=== PATIENT | male | born 1985 | race Caucasian/White ===

== ENCOUNTER 2023-01-18 04:11 | Emergency (ER) | payer OTHER, SELFPAY ==
--- NOTE | ~2023-01-18 | CT_ITS ---
EXAMINATION: CT ABDOMEN AND PELVIS WITH CONTRAST CLINICAL INFORMATION: Lower abdominal pain. Rule out appendicitis or diverticulitis. COMPARISON: None available. TECHNIQUE: Multidetector volumetric images were obtained from the superior aspect of the liver through the pubic symphysis following administration 85 mL of Omnipaque 350 intravenous contrast. Sagittal and coronal reformatted images were obtained on the technologist's workstation. Oral contrast: No This CT examination was performed using dose optimization techniques as appropriate, variously including the following: *Automated exposure control *Adjustment of mA and/or kV according to patient size (this includes techniques or standardized protocols for targeted exams where dose is matched to indication/reason for exam; i.e. extremities or head) *Use of iterative reconstruction technique DLP: 544 mGy-cm FINDINGS: LUNG BASES: The visualized lung bases are unremarkable. LIVER, GALLBLADDER, AND BILIARY TREE: Liver is normal in size. Subtle nodularity of the hepatic surface contour raises the possibility of early cirrhosis. No focal liver lesions. No biliary dilatation. Gallbladder physiologically contracted without inflammation. PANCREAS: Unremarkable. SPLEEN: Unremarkable. ADRENAL GLANDS: Unremarkable. KIDNEYS AND URETERS: The kidneys are normal in size, shape, and attenuation. No hydronephrosis, hydroureter, or calculi seen. No perinephric stranding. BLADDER: Unremarkable. GASTROINTESTINAL TRACT: Sigmoid colonic diverticulosis. No evidence of diverticulitis. Normal appendix. Stomach and small bowel unremarkable. ABDOMINAL WALL: No significant hernia is appreciated. LYMPH NODES: Prominent gastrohepatic ligament lymph nodes measure approximately 1 cm short axis. VASCULAR: Unremarkable. PELVIC VISCERA: Unremarkable. OSSEOUS STRUCTURES: Unremarkable. CT/CT abdomen pelvis w IV con IMPRESSION: * No acute findings within the abdomen or pelvis to explain the patient's symptomatology. * Sigmoid colonic diverticulosis without evidence of diverticulitis. * Normal appendix. * Subtle nodularity of the hepatic surface contour raises the possibility of early cirrhosis.
--- NOTE | ~2023-01-18 | XR_ITS ---
EXAMINATION: XR CHEST CLINICAL INFORMATION: Chest pain. Rule out pneumonia. COMPARISON: None available. TECHNIQUE: 2 views of the chest were obtained. FINDINGS: No significant abnormality is noted involving the heart, lungs, mediastinum, bony thorax or soft tissues. XR/XR chest 2V IMPRESSION: Unremarkable examination.
[2023-01-18 04:18] VITALS: BP 117/80; BP 137/85; PULSE 75; PULSE 80; RESP 22; TEMP 36.4; O2SAT 98; BMI 29.6
--- NOTE | 2023-01-18 04:20 | ECG_ITS ---
Test Reason : CHEST PAIN Blood Pressure : / mmHG Vent. Rate : 072 BPM Atrial Rate : 072 BPM P-R Int : 120 ms QRS Dur : 088 ms QT Int : 402 ms P-R-T Axes : 024 -09 005 degrees QTc Int : 440 ms Normal sinus rhythm Cannot rule out Inferior infarct , age undetermined Abnormal ECG No previous ECGs available Referred By: Generic ED Physician Electronically Signed By:JOVANNI MONGE MD
[2023-01-18 04:27] VITALS: BP 137/75; PULSE 81; PULSE 82; RESP 28; RESP 31; TEMP 36.4; O2SAT 100
[2023-01-18 04:34] LABS: Basophils Absolute Auto 0.1 X10*3/uL (0.0-0.2); Eosinophils Absolute Auto 0.3 X10*3/uL (0.0-0.4); Eosinophils Percent Auto 2.8 % (0-4); Hematocrit 41.6 % (42.0-52.0); Hemoglobin 14.4 g/dl (14.0-18.0); Imm Gran Abs Auto 0.02 X10*3/uL (0.00-0.03); Imm Gran Pct Auto 0.2 % (0.0-0.4); Lymphocytes Percent Auto 39.5 % (20-40); MANUAL DIFF FLAG NO; Mean Corpuscular HGB Conc 34.6 g/dl (31.0-36.0); Mean Corpuscular Hemoglobin 29.7 pg (27.0-33.0); Mean Corpuscular Volume 85.8 fL (80.0-98.0); Mean Platelet Volume 9.8 fL (9.4-12.4); Monocytes Absolute Auto 0.7 X10*3/uL (0.1-1.2); Monocytes Percent Auto 7.2 % (2-11); Neutrophils Absolute Auto 4.9 x10*3/uL (2.0-8.3); Neutrophils Percent Auto 49.3 % (45-73); Platelet Count 296 X10*3/uL (160-400); Red Blood Count 4.85 X10*6/uL (4.60-5.80); Red Cell Distribution Width 12.2 % (11.0-16.0)
[2023-01-18 04:40] LABS: INTERNATIONAL NORM RATIO 1.2 (0.9-1.1); Prothrombin Time 13.3 SEC (10.0-13.1)
--- NOTE | 2023-01-18 04:49 | ED.CHESTPAIN ---
HPI - Chest Pain General Chief Complaint: Chest Pain Stated Complaint: LOW ABD PAIN PER EMS Time Seen by Provider: 01/18/23 04:49 Source: patient Mode of arrival: EMS Limitations: no limitations History of Present Illness HPI narrative: 37-year-old male who presents emergency department for evaluation of chest pain and abdominal pain. Patient states that he woke up suddenly at 03:00 hours with severe abdominal pain. He states the pain was located in his lower abdomen, the pain is a constant, sharp pain. He states that he then developed chest pain which described as a heaviness is if someone was sitting on his chest shortness of breath and perfuse diaphoresis. The patient states he has had similar abdominal pain secondary to mesenteric adenitis and he has also had similar chest pain in the past secondary to anxiety. He denies back pain, neck, jaw or arm pain. Patient states that the pain was 10/10. A call an ambulance and was transported to the emergency department for evaluation. He denied fever, chills, cough. Related Data Allergies Allergy/AdvReac Type Severity Reaction Status Date / Time acetaminophen [From Vicodin] Allergy Hives Verified 01/18/23 04:35 hydrocodone [From Vicodin] Allergy Hives Verified 01/18/23 04:35 Review of Systems Review of Systems: Yes all other systems are reviewed and are negative [facility] Past Medical History [facility] Narrative: Past medical history: Anxiety, PTSD, hypothyroidism, mesenteric adenitis. Past surgical history: None. Social history: He denies tobacco and alcohol use. He did smoke some marijuana yesterday evening Social History Social History Alcohol intake: former Smoked in Last 30 Days: Yes Substance Use Type: Marijuana Substance Use Frequency: Socially Last Used Substance: Just Prior to Admission Advance Directives: No Advance Directives Information Provided: Yes Physical Exam Vital Signs: Vital Signs: Last Vital Signs Temp 98.2 F 01/18/23 06:18 Pulse 67 01/18/23 06:18 Resp 12 01/18/23 06:18 BP 119/67 01/18/23 06:18 Pulse Ox 96 01/18/23 06:18 O2 Del Method Room Air 01/18/23 06:18 BMI result Body Mass Index 29.6 Vital signs revealed elevated respiratory rate Const: Other: Awake, alert, male patient, he appears to be very anxious, appears to be in distress secondary to his chest and abdominal pain. HEENT: Head: Yes normal to inspection, Yes normocephalic and Yes atraumatic Ears: external ears normal General nose exam: Normal external nose present Face and sinus: Yes normal facial exam Mouth: Normal oral and palatal mucosa present Throat: Yes posterior oropharynx normal Eyes: General: appearance normal, both eyes and all related structures Pupils: Equal, round and reactive pupils present Neck: Neck: Yes normal visual inspection, Yes no lymphadenopathy, Yes trachea midline and Yes supple Chest: Other: Patient has tenderness palpation of the costochondral joints bilateral an of the sternum Resp: Effort & Inspection: normal respiratory effort and able to speak in complete sentences Auscultation: clear to auscultation bilaterally Cardio: Rate: regular rate Rhythm: regular rhythm Heart sounds: S1 normal heart sound present, S2 normal heart sound present and no murmurs GI: Other: Patient's abdomen is nondistended, he does have moderate left lower and right lower quadrant tenderness with no rebound, no voluntary or involuntary guarding, has normoactive bowel sounds : General: Yes no CVA tenderness Back/Spine/Pelvis: Back: no CVA tenderness Skin: General skin exam: no rashes or lesions noted Neuro: Cranial nerves: Yes CN's II-XII intact bilaterally and Yes Equal, round and reactive pupils present Cognition (Neuro): normal cognition Motor exam (neuro): 5/5 motor strength present throughout Extrem: General: Yes normal to inspection Psych: Appearance: grossly normal Speech and movement: Normal speech and movement present Affect: normal affect Attitude: cooperative Thought process: Normal thought process present Thought content: Normal thought content present Medications Administered Discontinued Medications Generic Name Dose Route Start Last Admin Trade Name Jesus PRN Reason Stop Dose Admin Iohexol 85 ml 01/18/23 05:24 01/18/23 05:25 Iohexol 350 Mg/Ml 100 Ml Infus..Btl IV 01/18/23 05:25 85 ml ONCE ONE Administration Lorazepam 1 mg 01/18/23 05:00 01/18/23 05:27 Lorazepam 2 Mg/Ml Vial IVPUSH 01/18/23 05:01 1 mg STAT STA Administration Morphine Sulfate 4 mg 01/18/23 05:00 01/18/23 05:28 Morphine Sulfate 4 Mg/Ml Cartridge IVPUSH 01/18/23 05:01 4 mg ONCE STA Administration Protocol Medical Decision Making Medical Decision Making MDM Narrative: 37-year-old male who presents emergency department for evaluation of sudden onset of chest and abdominal pain that woke him up from sleep at 03:00 hours. Patient had associated shortness of breath and diaphoresis. Pain did not radiate to his neck, jaw, arms or back. Patient states he has had similar chest pain secondary to anxiety in the past he has also had similar abdominal pain. Vital signs did reveal an elevated respiratory rate. Exam did reveal low moderate left lower and right lower quadrant tenderness as well as significant chest wall tenderness. I ordered a laboratory evaluation includes CBC, CMP, troponin, urinalysis, chest x-ray two view, CT scan of the abdomen pelvis with IV contrast. I ordered morphine 4 mg IV, Ativan 1 mg IV. 0511: My interpretation patient's laboratory evaluation as follows: CBC was normal. CMP was normal. High sensitive troponin I was below detectable limits. Will obtain a 3 hour troponin at 07:30 hours Twelve EKG was unremarkable. Differential Diagnosis Differential diagnosis includes was not limited to myocardial infarction, cardiac ischemia, costochondritis, appendicitis, diverticulitis, anxiety attack Admission/Observation Consideration of admission/observation: Escalation of care including admission/observation considered Lab Data [facility] Lab Attestation statement: I reviewed the patient's lab results. 01/18/23 04:29 01/18/23 04:29 Labs: Lab Results 01/18/23 01/18/23 01/18/23 Range/Units 04:29 04:29 04:29 WBC 10.0 (4.8-10.8) X10*3/uL RBC 4.85 (4.60-5.80) X10*6/uL Hgb 14.4 (14.0-18.0) g/dl Hct 41.6 L (42.0-52.0) % MCV 85.8 (80.0-98.0) fL MCH 29.7 (27.0-33.0) pg MCHC 34.6 (31.0-36.0) g/dl RDW 12.2 (11.0-16.0) % Plt Count 296 (160-400) X10*3/uL MPV 9.8 (9.4-12.4) fL Immature Gran % (Auto) 0.2 (0.0-0.4) % Neut % (Auto) 49.3 (45-73) % Lymph % (Auto) 39.5 (20-40) % [place] % (Auto) 7.2 (2-11) % Eos % (Auto) 2.8 (0-4) % Baso % (Auto) 1.0 (0-2) % Lymph # (Auto) 4.0 (1.2-4.9) X10*3/uL [place] # (Auto) 0.7 (0.1-1.2) X10*3/uL Eos # (Auto) 0.3 (0.0-0.4) X10*3/uL Baso # (Auto) 0.1 (0.0-0.2) X10*3/uL Abs Immat Gran (auto) 0.02 (0.00-0.03) X10*3/uL Absolute Neuts (auto) 4.9 (2.0-8.3) x10*3/uL Absolute Nucleated RBC 0.000 (0.0-0.012) X10*3/uL Nucleated RBC % (auto) 0.0 (0.0-0.2) /100WBC PT (10.0-13.1) SEC INR (0.9-1.1) Sodium 140 (135-145) mmol/L Potassium 3.6 (3.3-5.1) mmol/L Chloride 103 (96-108) mmol/L Carbon Dioxide 26 (22-29) mmol/L Anion Gap 15 (12-20) BUN 18 H (9-16) mg/dL Creatinine 1.28 (0.5-1.4) mg/dL Estim Creat Clear Calc 81.0 Estimated GFR > 60 Random Glucose 109 (60-115) mg/dL Calcium 9.9 (8.4-10.2) mg/dL Total Bilirubin 0.8 (0.0-1.0) mg/dL AST 32 (5-37) U/L ALT 33 (0-40) U/L Alkaline Phosphatase 71 (39-117) U/L Troponin I High Sens < 2.7 (<3.5-35.0) ng/L Total Protein 8.7 H (6.5-8.0) g/dL Albumin 4.3 (3.5-5.0) g/dL 06/17/23 Range/Units 04:29 WBC (4.8-10.8) X10*3/uL RBC (4.60-5.80) X10*6/uL Hgb (14.0-18.0) g/dl Hct (42.0-52.0) % MCV (80.0-98.0) fL MCH (27.0-33.0) pg MCHC (31.0-36.0) g/dl RDW (11.0-16.0) % Plt Count (160-400) X10*3/uL MPV (9.4-12.4) fL Immature Gran % (Auto) (0.0-0.4) % Neut % (Auto) (45-73) % Lymph % (Auto) (20-40) % [place] % (Auto) (2-11) % Eos % (Auto) (0-4) % Baso % (Auto) (0-2) % Lymph # (Auto) (1.2-4.9) X10*3/uL [place] # (Auto) (0.1-1.2) X10*3/uL Eos # (Auto) (0.0-0.4) X10*3/uL Baso # (Auto) (0.0-0.2) X10*3/uL Abs Immat Gran (auto) (0.00-0.03) X10*3/uL Absolute Neuts (auto) (2.0-8.3) x10*3/uL Absolute Nucleated RBC (0.0-0.012) X10*3/uL Nucleated RBC % (auto) (0.0-0.2) /100WBC PT 13.3 H (10.0-13.1) SEC INR 1.2 H (0.9-1.1) Sodium (135-145) mmol/L Potassium (3.3-5.1) mmol/L Chloride (96-108) mmol/L Carbon Dioxide (22-29) mmol/L Anion Gap (12-20) BUN (9-16) mg/dL Creatinine (0.5-1.4) mg/dL Estim Creat Clear Calc Estimated GFR Random Glucose (60-115) mg/dL Calcium (8.4-10.2) mg/dL Total Bilirubin (0.0-1.0) mg/dL AST (5-37) U/L ALT (0-40) U/L Alkaline Phosphatase (39-117) U/L Troponin I High Sens (<3.5-35.0) ng/L Total Protein (6.5-8.0) g/dL Albumin (3.5-5.0) g/dL Independent Interpretation I performed an independent interpretation of an: EKG and Plain X-Ray Interpretation: My independent interpretation of the patient's 12 EKG is as follows: Normal sinus rhythm rate of 72, normal CT interval, QRS duration QTC interval, Q-wave in lead 3 with inverted T-wave in lead 3, no ST segment elevation, no ST segment depression, no PACs, no PVCs My independent interpretation of the patient's one-view chest x-ray is no acute disease Radiology Impression Discussion of test interpretation with radiology: I have reviewed the radiologist's reading. Radiologist Impression: XR chest 2V IMPRESSION: Unremarkable examination. Dictated By:Kvng Porras MD CT abdomen pelvis w IV con IMPRESSION: * No acute findings within the abdomen or pelvis to explain the patient's symptomatology. * Sigmoid colonic diverticulosis without evidence of diverticulitis. * Normal appendix. * Subtle nodularity of the hepatic surface contour raises the possibility of early cirrhosis. Dictated By:Kvng Porras MD Discharge Plan Discharge Clinical Impression: Chest pain, Abdominal pain, Panic attack Patient Disposition: Home, Self-Care Instructions: Abdominal Pain (ED), Chest Pain (ED) Additional Instructions: Your laboratory evaluation was unremarkable Your EKG was normal. The CT scan of your abdomen pelvis did not reveal a clear cause for your pain. Take ibuprofen 200 mg pills, 3 pills every 6 hours as needed for pain. Take Tylenol (acetaminophen) 500 mg pills, 2 pills every 4 to 6 hours as needed for pain. Follow-up with your doctor in 2 days. Please return to the emergency department if your symptoms get worse or if you develop any symptoms that are concerning to you.
[2023-01-18 04:50] LABS: Alanine Aminotransferase 33 U/L (0-40); Albumin Level 4.3 g/dL (3.5-5.0); Alkaline Phosphatase 71 U/L (39-117); Anion Gap 15 (12-20); Aspartate Amino Transferase 32 U/L (5-37); Bilirubin Total 0.8 mg/dL (0.0-1.0); Blood Urea Nitrogen 18 mg/dL (9-16); Calcium 9.9 mg/dL (8.4-10.2); Carbon Dioxide 26 mmol/L (22-29); Chloride 103 mmol/L (96-108); Estimated Glomerular Filt Rate > 60; Glucose Random 109 mg/dL (60-115); Potassium 3.6 mmol/L (3.3-5.1); Sodium 140 mmol/L (135-145); Total Protein 8.7 g/dL (6.5-8.0)
[2023-01-18 04:54] LABS: Troponin-I High Sensitivity < 2.7 ng/L (<3.5-35.0)
[2023-01-18] MEDS: iohexoL 350 MG/ML 100 ML INFUS..BTL 85 ML IV (05:25)
[2023-01-18] MEDS: LORazepam 2 MG/ML VIAL 1 MG IVPUSH (05:27)
[2023-01-18] MEDS: Morphine Sulfate 4 MG/ML CARTRIDGE IVPUSH (05:28)
[2023-01-18 06:18] VITALS: BP 119/67; PULSE 67; RESP 12; TEMP 36.8; O2SAT 96
--- NOTE | 2023-01-18 06:23 | PC.NURSE ---
Patient arrived via EMS from a local hotel with reports of chest pain, sob, lower abdominal pain, and diarrhea. Chest pain intermittent and 8/10 pain rating. Access in left ac, labs drawn, medications administered as per OCT. Call serrano within reach. Will continue to follow plan of care
[2023-01-18 07:43] VITALS: BP 114/71; PULSE 61; RESP 16; TEMP 36.8; O2SAT 99
--- NOTE | 2023-01-18 07:46 | PC.NURSE ---
patient sleeping, comfort filler intact- pts hr was 43 on monitor with short pauses- provider notified, pt was then woke up- pt woke easily to verbal stimulus- pt then became sinus niraj 60s on monitor. pt states his chest pain was 1/10, lungs clear, no edema noted, tech to redraw troponin, vitals otherwise stable, call serrano within reach, will continue to monitor.
[2023-01-18 08:27] LABS: Troponin-I High Sensitivity < 2.7 ng/L (<3.5-35.0)
== END 2023-01-18 08:39 | disposition home or self-care (01) ==
PROVIDERS: Emergency Provider Emergency Medicine Emergency Medical Services
DX: R07.9 Chest pain, unspecified (principal); R10.30 Lower abdominal pain, unspecified; F41.0 Panic disorder [episodic paroxysmal anxiety]; F12.90 Cannabis use, unspecified, uncomplicated
CPT/HCPCS: 36415; 71046; 74177; 80053; 84484; 85025; 85610; 93005; 96374; 96375; 99284; 99285; J2060; J2270; Q9967